=== PATIENT | female | born 1970 | race Caucasian/White ===

== ENCOUNTER 2018-12-29 02:47 | Emergency (ER) | payer OTHER ==
[~2018-12-29] VITALS: Ht 165.1 cm; Wt 57.6 kg
--- NOTE | 2018-12-29 02:52 | NUR ---
ERMD at bedside for MSE
[2018-12-29] MEDS ORDERED: ONDANSETRON 4 MG/2 ML VIAL ONE (02:58)
[2018-12-29] MEDS ORDERED: HYDROMORPHONE 1 MG/1 ML DISP.SYRIN ONE (02:58)
[2018-12-29] MEDS ORDERED: HYDROMORPHONE 1 MG/1 ML DISP.SYRIN IM ONE (03:00)
[2018-12-29] MEDS ORDERED: ONDANSETRON 4 MG/2 ML VIAL IM ONE (03:00)
[2018-12-29] MEDS ORDERED: GABAPENTIN 300 MG CAPSULE PO ONE (03:15)
[2018-12-29] MEDS ORDERED: LIDOCAINE 5% PATCH TD ONE ×2 (03:15→03:17)
[2018-12-29] MEDS ORDERED: GABAPENTIN 300 MG CAPSULE ONE (03:18)
--- NOTE | 2018-12-29 03:33 | NUR ---
Patient discharged to home in stable conditon. Written and verbal after care instructions given. Patient verbalizes understanding of instructions. Ambulated from ER with stable gait. All belongings with patient.
[2018-12-29 03:34] VITALS: BP 121/81
== END 2018-12-29 03:34 | disposition home or self-care (01) ==
LOC: ER 02:49
DX: M54.41 Lumbago with sciatica, right side (principal)
CPT/HCPCS: 96372 ×2; 99283; J1170; J2405; A4663